=== PATIENT | female | born 1940 | race Caucasian/White ===

== ENCOUNTER 2017-09-13 20:35 | Emergency (ER) | payer MEDICARE ==
[~2017-09-13] VITALS: Ht 157.5 cm; Wt 56.1 kg
[2017-09-13 20:40] VITALS: BP 162/89; PULSE 73; RESP 20; TEMP 98.1; O2SAT 98
[2017-09-13] MEDS ORDERED: VASO10TA8 PO (21:54)
[2017-09-13] MEDS ORDERED: MONT10TA2 PO (21:54)
--- NOTE | 2017-09-13 21:55 | PD ---
HPI Chief Complaint: Cold / Flu Symptoms Time Seen by Provider: 21:44 Travel History International Travel<30 days: No Contact w/Intl Traveler<30days: No Traveled to known affect area: No History of Present Illness HPI This patient complains of cough and congestion and sore throat. Duration 3-4 days. No alleviating factors. No fever. No productive cough or hemoptysis. PFSH Social History Alcohol Use: No Tobacco Use: No Substance Use: No Allergies-Medications (Allergen,Severity, Reaction): Coded Allergies: No Known Allergies (Unverified , 09/13/17) Review of Systems General / Constitutional: No: Fever HENT: No: Headaches Cardiovascular: No: Chest Pain or Discomfort Physical Exam Narrative RESPIRATORY: Respiratory effort unlabored, no retractions or use of accessory muscles. Breath sounds are clear and symmetric. NECK: Symmetrical appearance, midline trachea. No mass or crepitus. Thyroid without enlargement, tenderness, or mass. GASTROINTESTINAL: Abdomen soft, non-tender, nondistended. Positive bowel sounds. No hepato-splenomegaly, or palpable masses. No guarding. Throat clear Data Data Last Documented VS Vital Signs Date Time Temp Pulse Resp B/P (MAP) Pulse Ox O2 Delivery O2 Flow Rate FiO2 09/13/17 20:40 98.1 73 20 162/89 (113) 98 MDM Medical Decision Making Medical Screen Exam Complete: Yes Emergency Medical Condition: Yes Medical Record Reviewed: Yes Differential Diagnosis Bronchitis, pneumonia, URI Narrative Course I have reviewed the patient's electronic medical record. Presentation consistent with acute viral respiratory illness. I don't see indication for antibiotics sHe is very anxious but stable for outpatient follow-up Diagnosis Primary Impression: Bronchitis Additional Instructions: The patient was advised to follow up with their physician and return if they worsen. Med/Other Pt SpecificInfo: Other Disposition: 01 DISCHARGE HOME Condition: Stable Sanju Brody MD Sep 13, 2017 21:54
== END 2017-09-13 22:04 | disposition home or self-care (01) ==
LOC: PHED 20:35 → PHEFT 22:04
DX: J40 Bronchitis, not specified as acute or chronic (principal); R07.0 Pain in throat
CPT/HCPCS: 99281